=== PATIENT | male | born 2005 | race Two or more races ===

== ENCOUNTER 2024-11-01 17:53 | Emergency (ER) | payer BC, SELFPAY ==
[2024-11-01 18:07] VITALS: BP 137/86; PULSE 115; RESP 18; TEMP 36.7; O2SAT 99; BMI 19.3
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
== END 2024-11-01 19:17 | disposition home or self-care (01) ==
LOC: SERX 18:26
PROVIDERS: Emergency Provider Emergency Medicine; PCP Family Medicine
DX: R51.9 Headache, unspecified (principal); F17.200 Nicotine dependence, unspecified, uncomplicated; Z91.018 Allergy to other foods; Z91.048 Other nonmedicinal substance allergy status; V89.2XXA Person injured in unspecified motor-vehicle accident, traffic, initial encounter; Y92.410 Unspecified street and highway as the place of occurrence of the external cause
CPT/HCPCS: 99281